=== PATIENT | male | born 1990 | race Caucasian/White ===

== ENCOUNTER 2019-12-24 03:50 | Emergency (ER) | payer OTHER ==
[~2019-12-24] VITALS: Ht 188 cm; Wt 88.5 kg
--- NOTE | 2019-12-24 03:52 | NUR ---
Dr. Malcolm at bedside for MSE
[2019-12-24] MEDS ORDERED: ASPIRIN 81 MG TAB.CHEW PO ONE (04:00)
[2019-12-24] MEDS ORDERED: KETOROLAC TROMETHAMINE 30 MG INJ IVP ONE (04:00)
[2019-12-24] MEDS ORDERED: KETOROLAC TROMETHAMINE 30 MG INJ ONE (04:05)
[2019-12-24] MEDS ORDERED: ASPIRIN 81 MG TAB.CHEW ONE (04:06)
--- NOTE | 2019-12-24 04:21 | NUR ---
Xray at bedside
[2019-12-24 04:30] LABS: BASOPHILS % (AUTO) 0.3 % (0.0-2.0); EOSINOPHILS # (AUTO) 0.2 K/uL (0.0-0.7); EOSINOPHILS % (AUTO) 2.5 % (0.0-7.0); HEMATOCRIT 43.9 % (36.7-47.1); LYMPHOCYTES # (AUTO) 0.4 K/uL (20.0-40.0); LYMPHOCYTES % (AUTO) 7.1 % (20.5-51.5); MEAN CORPUSCULAR HEMOGLOBIN 30.6 uug (23.8-33.4); MEAN CORPUSCULAR HGB CONC 34 g/dL (32.5-36.3); MEAN CORPUSCULAR VOLUME 89.4 fL (73.0-96.2); MONOCYTES # (AUTO) 0.8 K/uL (2.0-10.0); MONOCYTES % (AUTO) 12.9 % (0.0-11.0); NEUTROPHILS # (AUTO) 4.8 K/uL (1.8-8.9); NEUTROPHILS % (AUTO) 77.2 % (38.5-71.5); PLATELET COUNT (AUTO) 196 K/uL (152-348); RED BLOOD CELL COUNT(AUTO) 4.91 MIL/uL (4.06-5.63); WHITE BLOOD COUNT (AUTO) 6.2 K/uL (3.6-10.2)
[2019-12-24 04:34] LABS: CREATININE 1.2 mg/dL (0.6-1.3)
[2019-12-24 04:45] LABS: BILIRUBIN,DIRECT 0.1 mg/dL (0.0-0.2); BILIRUBIN,TOTAL 0.6 mg/dL (0.2-1.0); TOTAL PROTEIN, SERUM 7.5 g/dL (6.4-8.2)
--- NOTE | 2019-12-24 05:07 | NUR ---
Pt's temp: 99.4 oral
--- NOTE | 2019-12-24 05:30 | NUR ---
pt in bed, resting aa/ox4. able to speak in complete sentences no s/s of distress respirations even and unlabored safety precautions in place. bed locked, lowest position. instructed pt to call nurse for assistance will continue to monitor
--- NOTE | 2019-12-24 06:22 | NUR ---
Pt's temp: 99.1 oral
--- NOTE | 2019-12-24 07:42 | NUR ---
Patient discharged to home in stable condition. Written and verbal after care instructions given. Patient verbalizes understanding of instructions. Stressed follow up or return to ER for worsening s/s.pt says feels bewtter, ready to go home. pt walks in steady gait.
[2019-12-24 07:43] VITALS: BP 109/65
== END 2019-12-24 07:50 | disposition home or self-care (01) ==
LOC: ER 03:53
DX: R07.9 Chest pain, unspecified (principal); R50.9 Fever, unspecified; Z20.828 Contact with and (suspected) exposure to other viral communicable diseases; I34.1 Nonrheumatic mitral (valve) prolapse; F17.210 Nicotine dependence, cigarettes, uncomplicated; J45.909 Unspecified asthma, uncomplicated
CPT/HCPCS: 36415; 71045; 80048; 80076; 83880; 84484 ×2; 85025; 93005; 96374; 99285; 99406; J1885; U0003; 70030-TC; A4663